=== PATIENT | male | born 1990 | race Asian ===

== ENCOUNTER 2017-04-27 16:39 | Emergency (ER) | payer OTHER ==
[~2017-04-27] VITALS: Ht 157.5 cm; Wt 59.0 kg
[~2017-04-27 16:39] MED LIST: CLON.1 PO; SERT50TA12 PO
[2017-04-27] MEDS ORDERED: NAPR250T2 PO (16:44)
[2017-04-27] MEDS ORDERED: COLCHICINE 0.6 MG TABLET PO ONE (18:45)
[2017-04-27] MEDS ORDERED: TraMADol HCL 50 MG TABLET PO ONE (20:15)
[2017-04-27 20:48] VITALS: BP 134/81
== END 2017-04-27 20:50 | disposition home or self-care (01) ==
LOC: EMS 16:42
DX: M10.9 Gout, unspecified (principal); M25.562 Pain in left knee; I10 Essential (primary) hypertension; M19.90 Unspecified osteoarthritis, unspecified site; F17.210 Nicotine dependence, cigarettes, uncomplicated; F12.90 Cannabis use, unspecified, uncomplicated; F19.90 Other psychoactive substance use, unspecified, uncomplicated; Z91.018 Allergy to other foods
CPT/HCPCS: 99283

== ENCOUNTER 2017-05-16 22:12 | Emergency (ER) | payer OTHER ==
[~2017-05-16] VITALS: Ht 157.5 cm; Wt 59.0 kg
[~2017-05-16 22:12] MED LIST changes: -CLON.1 PO; +NAPR250T2 PO; -SERT50TA12 PO
[2017-05-16 23:44] VITALS: BP 135/91
[2017-05-17] MEDS ORDERED: NAPROXEN 250 MG TABLET PO ONE
[2017-05-18] MEDS ORDERED: HYDR-309 PO (17:35)
== END 2017-05-17 00:21 | disposition home or self-care (01) ==
LOC: EMS 22:13
DX: S39.012A Strain of muscle, fascia and tendon of lower back, initial encounter (principal); M19.90 Unspecified osteoarthritis, unspecified site; I10 Essential (primary) hypertension; F17.210 Nicotine dependence, cigarettes, uncomplicated; F12.10 Cannabis abuse, uncomplicated; F15.10 Other stimulant abuse, uncomplicated; X50.0XXA Overexertion from strenuous movement or load, initial encounter; Y93.89 Activity, other specified; Y92.89 Other specified places as the place of occurrence of the external cause; Y99.8 Other external cause status
CPT/HCPCS: 99282

== ENCOUNTER 2017-11-19 13:37 | Emergency (ER) | payer OTHER ==
[~2017-11-19] VITALS: Ht 157.5 cm; Wt 58.0 kg
[~2017-11-19 13:37] MED LIST changes: +HYDR-309 PO; -NAPR250T2 PO; +NAPR250T4 PO
[2017-11-19] MEDS ORDERED: IBUPROFEN 800 MG TABLET PO ONE (15:45)
[2017-11-19 17:45] VITALS: BP 131/95
== END 2017-11-19 18:28 | disposition home or self-care (01) ==
LOC: EMS 13:39
DX: S60.221A Contusion of right hand, initial encounter (principal); M25.531 Pain in right wrist; F17.210 Nicotine dependence, cigarettes, uncomplicated; W22.8XXA Striking against or struck by other objects, initial encounter; Y93.89 Activity, other specified; Y92.89 Other specified places as the place of occurrence of the external cause; Y99.8 Other external cause status
CPT/HCPCS: 99284

== ENCOUNTER 2020-02-08 20:28 | Emergency (ER) | payer OTHER ==
[~2020-02-08] VITALS: Ht 157.5 cm; Wt 61.4 kg
[2020-02-08] MEDS ORDERED: ACETAMINOPHEN 500 MG TABLET PO ONE (20:45)
[2020-02-08 22:05] VITALS: BP 138/78
== END 2020-02-08 22:36 | disposition home or self-care (01) ==
LOC: EMS 20:33
DX: J02.8 Acute pharyngitis due to other specified organisms (principal); F17.210 Nicotine dependence, cigarettes, uncomplicated; Z91.018 Allergy to other foods; Z03.818 Encounter for observation for suspected exposure to other biological agents ruled out
CPT/HCPCS: 99283; U0003

== ENCOUNTER 2020-02-25 21:10 | Emergency (ER) | payer OTHER ==
[~2020-02-25] VITALS: Ht 157.5 cm; Wt 57.3 kg
[2020-02-25 23:10] VITALS: BP 117/97
[2020-02-25] MEDS: ALTEPLASE 2 MG/VIAL IVCATH ONE ×2 (23:13→23:16)
== END 2020-02-25 23:39 | disposition home or self-care (01) ==
LOC: EMS 21:10
DX: T82.594A Other mechanical complication of infusion catheter, initial encounter (principal); I10 Essential (primary) hypertension; F17.210 Nicotine dependence, cigarettes, uncomplicated; Z91.018 Allergy to other foods
CPT/HCPCS: J2997

== ENCOUNTER 2020-11-29 14:14 | Emergency (ER) | payer OTHER ==
[~2020-11-29] VITALS: Ht 157.5 cm; Wt 65.9 kg
[2020-11-29] MEDS ORDERED: ALLO100T2 PO (14:28)
[2020-11-29] MEDS ORDERED: COLC0.6T73 PO (14:28)
[2020-11-29] MEDS ORDERED: PRED1 PO (14:28)
[2020-11-29] MEDS ORDERED: PB/HYOSCY/ATR/SCOP/LIDO/MAALOX 55 ML BOTTLE PO ONE (15:30)
[2020-11-29] MEDS ORDERED: PENICILLIN V POTASSIUM 500 MG TABLET PO ONE (15:30)
[2020-11-29] MEDS ORDERED: DEXAMETHASONE SOD PHOS 4 MG/ML 5 ML VIAL IM ONE (15:30)
[2020-11-29] MEDS ORDERED: ACETAMINOPHEN 325 MG TABLET PO ONE (15:45)
[2020-11-29] MEDS ORDERED: HYDROCODONE/ACETAMINOPHEN 5-325 MG TABLET PO ONE (15:45)
[2020-11-29] MEDS ORDERED: AZITHROMYCIN 500 MG TABLET PO ONE (15:45)
[2020-11-29] MEDS ORDERED: IBUPROFEN 800 MG TABLET PO ONE (16:15)
[2020-11-29 18:04] VITALS: BP 137/108
== END 2020-11-29 18:10 | disposition home or self-care (01) ==
LOC: EMS 14:14
DX: J02.0 Streptococcal pharyngitis (principal); R51.9 Headache, unspecified; I10 Essential (primary) hypertension; F17.210 Nicotine dependence, cigarettes, uncomplicated; Z91.010 Allergy to peanuts; Z91.013 Allergy to seafood
CPT/HCPCS: 96372; 99284; A9575; J1100

== ENCOUNTER 2021-01-23 04:38 | Emergency (ER) | payer OTHER ==
[~2021-01-23] VITALS: Ht 157.5 cm; Wt 67.3 kg
[~2021-01-23 04:38] MED LIST changes: +ALLO100T2 PO; +COLC0.6T73 PO; -HYDR-309 PO; -NAPR250T4 PO; +PRED1 PO
[2021-01-23 05:45] VITALS: BP 158/116
[2021-01-23] MEDS ORDERED: KETOROLAC TROMETHAMINE 30 MG/ML VIAL IM ONE (06:30)
[2021-01-23] MEDS ORDERED: DOXYCYCLINE HYCLATE 100 MG TABLET PO ONE (06:30)
[2021-01-23] MEDS ORDERED: CEPHALEXIN MONOHYDRATE 500 MG CAPSULE PO ONE (06:30)
== END 2021-01-23 06:57 | disposition home or self-care (01) ==
LOC: EMS 04:39
DX: M10.9 Gout, unspecified (principal)
CPT/HCPCS: 96372; 99283; J1885

== ENCOUNTER 2021-01-24 18:58 | Emergency (ER) | payer OTHER ==
[~2021-01-24] VITALS: Ht 157.5 cm; Wt 67.3 kg
[2021-01-24 20:11] LABS: HEMATOCRIT 45.4 % (41-53); HEMOGLOBIN 15.1 g/dL (13.5-17.5); LYMPHOCYTES # (AUTO) 2.7 K/uL (1.0-4.8); LYMPHOCYTES % (AUTO) 30.9 % (22.0-44.0); MEAN CORPUSCULAR HEMOGLOBIN 29.2 pg (26.0-34.0); MEAN CORPUSCULAR HGB CONC 33.3 G/dL (31.0-37.0); MEAN CORPUSCULAR VOLUME 88 fL (80-100); MONOCYTES # (AUTO) 0.7 K/uL (0.1-1.0); MONOCYTES % (AUTO) 8.2 % (2.0-9.0); NEUTROPHILS % (AUTO) 56.9 % (40.0-70.0); PLATELET COUNT (AUTO) 163 K/uL (150-450); RED BLOOD CELL COUNT(AUTO) 5.17 MIL/uL (4.50-5.90); RED CELL DISTRIBUTION WIDTH 14.2 % (11.5-14.5)
[2021-01-24 20:23] LABS: CALCIUM, TOTAL 8.5 mg/dL (8.8-10.5); CREATININE 1.79 mg/dL (0.60-1.30)
[2021-01-24 20:29] LABS: BILIRUBIN,TOTAL 0.2 mg/dL (0.1-1.0); TOTAL PROTEIN, SERUM 6.6 g/dL (6.4-8.2)
[2021-01-24] MEDS ORDERED: AmLODIPine BESYLATE 5 MG TABLET PO ONE (20:30)
[2021-01-24] MEDS ORDERED: PredniSONE 20 MG TABLET PO ONE (21:00)
[2021-01-24 21:17] VITALS: BP 157/100
== END 2021-01-24 21:51 | disposition home or self-care (01) ==
LOC: EMS 19:01
DX: M10.9 Gout, unspecified (principal); F17.210 Nicotine dependence, cigarettes, uncomplicated; I10 Essential (primary) hypertension; Z91.010 Allergy to peanuts; Z91.013 Allergy to seafood; Z79.899 Other long term (current) drug therapy
CPT/HCPCS: 36415; 73130; 80053; 85025; 99284; J7512

== ENCOUNTER 2021-02-10 16:32 | Emergency (ER) | payer OTHER ==
[~2021-02-10] VITALS: Ht 157.5 cm; Wt 67.3 kg
[2021-02-10] MEDS ORDERED: AMLO2.5T96 PO (16:39)
[2021-02-10] MEDS ORDERED: KETOROLAC TROMETHAMINE 10 MG TABLET PO ONE (17:30)
[2021-02-10] MEDS ORDERED: AMLO-257 PO (17:38)
[2021-02-10] MEDS ORDERED: ALLO-45 PO (17:38)
[2021-02-10 17:55] VITALS: BP 142/100
== END 2021-02-10 18:00 | disposition home or self-care (01) ==
LOC: EMS 16:32
DX: S83.92XA Sprain of unspecified site of left knee, initial encounter (principal); I10 Essential (primary) hypertension; Z79.899 Other long term (current) drug therapy; W19.XXXA Unspecified fall, initial encounter; Y93.9 Activity, unspecified; Y92.89 Other specified places as the place of occurrence of the external cause; Y99.8 Other external cause status
CPT/HCPCS: 29505; 99283

== ENCOUNTER 2021-03-02 23:29 | Emergency (ER) | payer OTHER ==
[~2021-03-02] VITALS: Ht 157.5 cm; Wt 63.6 kg
[~2021-03-02 23:29] MED LIST changes: +ALLO-45 PO; -ALLO100T2 PO; +AMLO-257 PO
[2021-03-02] MEDS ORDERED: LOSA25TA21 PO (23:48)
[2021-03-03] MEDS ORDERED: ACETAMINOPHEN 325 MG TABLET PO ONE (01:30)
[2021-03-03] MEDS ORDERED: COLCHICINE 0.6 MG TABLET PO ONE ×2 (01:30)
[2021-03-03] MEDS ORDERED: PredniSONE 20 MG TABLET PO ONE (01:45)
[2021-03-03] MEDS ORDERED: LIDOCAINE 1% 10 ML VIAL IM ONE (03:00)
[2021-03-03 04:13] LABS: SPECIMENTYPE,BODY FLUID SYNOVIAL
[2021-03-03 06:00] LABS: APPEARANCE,SPUN,BODY FLUID HAZY (CLEAR); APPEARANCE,UNSPUN,BODY FLUID CLOUDY (CLEAR); COLOR,BODY FLUID YELLOW (LT YELLOW); WBC, BODY FLUID 58950 /cu. mm.
[2021-03-03 06:04] LABS: LYMPHOCYTES,BODY FLUID 0 %; MONOCYTES,BODY FLUID 10 %; NEUTROPHILS,BODY FLUID 90 %
[2021-03-03 06:06] LABS: EOSINOPHILS,BF (ANAL) 0 %
[2021-03-03 06:11] LABS: BASOPHILS,BODY FLUID 0 %
[2021-03-03 06:18] LABS: BASOPHILS % (AUTO) 0.4 % (0.0-2.0); EOSINOPHILS % (AUTO) 0.1 % (1.0-6.0); HEMATOCRIT 47.3 % (41-53); HEMOGLOBIN 15.6 g/dL (13.5-17.5); LYMPHOCYTES # (AUTO) 1.2 K/uL (1.0-4.8); LYMPHOCYTES % (AUTO) 10.5 % (22.0-44.0); MEAN CORPUSCULAR HEMOGLOBIN 28.5 pg (26.0-34.0); MEAN CORPUSCULAR HGB CONC 33.1 G/dL (31.0-37.0); MEAN CORPUSCULAR VOLUME 86 fL (80-100); MONOCYTES # (AUTO) 0.3 K/uL (0.1-1.0); MONOCYTES % (AUTO) 2.5 % (2.0-9.0); PLATELET COUNT (AUTO) 268 K/uL (150-450); RED BLOOD CELL COUNT(AUTO) 5.49 MIL/uL (4.50-5.90); RED CELL DISTRIBUTION WIDTH 14.4 % (11.5-14.5)
[2021-03-03 06:23] LABS: CREATININE 1.69 mg/dL (0.60-1.30); POTASSIUM 3.4 mmol/L (3.5-5.1)
[2021-03-03 06:36] LABS: ALBUMIN 2.9 g/dL (3.4-5.0); BILIRUBIN,TOTAL 0.6 mg/dL (0.1-1.0); C-REACTIVE PROTEIN QUANT 8.85 mg/dL (0.00-0.30); TOTAL PROTEIN, SERUM 7.3 g/dL (6.4-8.2)
[2021-03-03 06:56] LABS: NEUTROPHILS % (AUTO) 86.5 % (40.0-70.0)
[2021-03-03 08:01] LABS: ERYTHROCYTE SEDIMENTATION RATE 44 MM/HR (0-15)
[2021-03-03 09:51] VITALS: BP 128/77
== END 2021-03-03 09:59 | disposition home or self-care (01) ==
LOC: EMS 23:30
DX: M25.462 Effusion, left knee (principal); I10 Essential (primary) hypertension; F17.210 Nicotine dependence, cigarettes, uncomplicated; Z91.018 Allergy to other foods; Z91.010 Allergy to peanuts; Z91.013 Allergy to seafood; Z79.899 Other long term (current) drug therapy
CPT/HCPCS: 20610; 36415; 80053; 83605; 83986; 85025; 85651; 86140; 87040; 87070; 87205; 89051; 89060; 99285; J3490; J7512; 99284

== ENCOUNTER 2021-03-29 18:56 | Emergency (ER) | payer OTHER ==
[~2021-03-29] VITALS: Ht 170.2 cm; Wt 68.2 kg
[~2021-03-29 18:56] MED LIST changes: +LOSA25TA21 PO
[2021-03-29 19:59] LABS: COVID AG,FIA SOURCE NASOPHARYNGEAL
[2021-03-29 20:00] VITALS: BP 124/77
== END 2021-03-29 20:48 | disposition home or self-care (01) ==
LOC: EMS 18:58
DX: J02.9 Acute pharyngitis, unspecified (principal); R05 Cough; R51.9 Headache, unspecified; I10 Essential (primary) hypertension; F17.210 Nicotine dependence, cigarettes, uncomplicated; Z20.822 Contact with and (suspected) exposure to COVID-19; Z91.018 Allergy to other foods; Z91.010 Allergy to peanuts; Z91.013 Allergy to seafood
CPT/HCPCS: 87426; 99283; U0003

== ENCOUNTER 2021-07-11 13:39 | Emergency (ER) | payer OTHER ==
[~2021-07-11] VITALS: Ht 157.5 cm; Wt 65.5 kg
[2021-07-11] MEDS ORDERED: SODIUM CHLORIDE 0.9% 1,000 ML IV ONE (14:30)
[2021-07-11] MEDS ORDERED: CefTRIAXone 1 GM/DEXTROSE 50 ML IV ONE (14:30)
[2021-07-11] MEDS ORDERED: KETOROLAC TROMETHAMINE 30 MG/ML VIAL IVP ONE (14:30)
[2021-07-11] MEDS ORDERED: ONDANSETRON HCL 4 MG/2 ML VIAL IVP ONE (14:30)
[2021-07-11 14:39] LABS: CALCIUM, TOTAL 8.7 mg/dL (8.8-10.5); CREATININE 1.88 mg/dL (0.60-1.30); POTASSIUM 3.6 mmol/L (3.5-5.1)
[2021-07-11 14:44] LABS: BASOPHILS % (AUTO) 0.6 % (0.0-2.0); EOSINOPHILS % (AUTO) 0.9 % (1.0-6.0); HEMATOCRIT 46.6 % (41-53); HEMOGLOBIN 15.6 g/dL (13.5-17.5); LYMPHOCYTES # (AUTO) 1.4 K/uL (1.0-4.8); MEAN CORPUSCULAR HEMOGLOBIN 29.2 pg (26.0-34.0); MEAN CORPUSCULAR HGB CONC 33.4 G/dL (31.0-37.0); MEAN CORPUSCULAR VOLUME 88 fL (80-100); MONOCYTES # (AUTO) 0.9 K/uL (0.1-1.0); MONOCYTES % (AUTO) 7.2 % (2.0-9.0); NEUTROPHILS # (AUTO) 9.4 K/uL (1.8-7.7); NEUTROPHILS % (AUTO) 79.3 % (40.0-70.0); PLATELET COUNT (AUTO) 167 K/uL (150-450); RED BLOOD CELL COUNT(AUTO) 5.32 MIL/uL (4.50-5.90); RED CELL DISTRIBUTION WIDTH 14.1 % (11.5-14.5)
[2021-07-11 14:45] LABS: ALBUMIN 3.1 g/dL (3.4-5.0); BILIRUBIN,TOTAL 0.6 mg/dL (0.1-1.0); TOTAL PROTEIN, SERUM 7.1 g/dL (6.4-8.2)
[2021-07-11 16:14] LABS: APPEARANCE,URINE CLEAR (CLEAR); BILIRUBIN,URINE NEGATIVE (NEGATIVE); GLUCOSE, URINE (UA) NEGATIVE (NEGATIVE); KETONES,URINE NEGATIVE (NEGATIVE); LEUKOCYTE ESTERASE ,URINE NEGATIVE (NEGATIVE); NITRATE,URINE NEGATIVE (NEGATIVE); OCCULT BLOOD,URINE TRACE (NEGATIVE); PROTEIN,URINE SEE CONFIRM (NEGATIVE); UROBILINOGEN,URINE 0.2 mg/dL (<=1.0)
[2021-07-11 16:32] LABS: SULFOSALICYLIC ACID,URINE 4+ (Negative)
[2021-07-11 16:33] LABS: BACTERIA,URINE None Seen /HPF (None Seen); RBC,URINE None Seen /HPF (0-2); WBC,URINE None Seen /HPF (0-5)
[2021-07-11 17:44] VITALS: BP 153/104
== END 2021-07-11 17:55 | disposition home or self-care (01) ==
LOC: EMS 14:11
DX: R10.12 Left upper quadrant pain (principal); R50.9 Fever, unspecified; R94.4 Abnormal results of kidney function studies; I10 Essential (primary) hypertension; F17.210 Nicotine dependence, cigarettes, uncomplicated; Z91.018 Allergy to other foods; Z91.010 Allergy to peanuts; Z91.013 Allergy to seafood
CPT/HCPCS: 36415; 71045; 74176; 80053; 81001; 83605; 85025; 87040; 96365; 96366; 96375; 99284; J0696; J1885; J2405; J7030; 81002

== ENCOUNTER 2021-08-14 09:32 | Emergency (ER) | payer OTHER ==
[~2021-08-14] VITALS: Ht 157.5 cm; Wt 63.6 kg
[2021-08-14 09:47] VITALS: BP 153/105
[2021-08-14] MEDS ORDERED: COLCHICINE 0.6 MG TABLET PO ONE (11:00)
== END 2021-08-14 11:18 | disposition home or self-care (01) ==
LOC: EMS 09:32
DX: L30.9 Dermatitis, unspecified (principal); I12.9 Hypertensive chronic kidney disease with stage 1 through stage 4 chronic kidney disease, or unspecified chronic kidney disease; N18.9 Chronic kidney disease, unspecified; M19.90 Unspecified osteoarthritis, unspecified site; F17.210 Nicotine dependence, cigarettes, uncomplicated
CPT/HCPCS: 99283

== ENCOUNTER 2021-09-29 11:03 | Emergency (ER) | payer OTHER ==
[~2021-09-29] VITALS: Ht 165.1 cm; Wt 59.1 kg
[~2021-09-29 11:03] MED LIST changes: +LOSA-370 PO; -LOSA25TA21 PO; -PRED1 PO
[2021-09-29 13:43] LABS: BASOPHILS % (AUTO) 1.2 % (0.0-2.0); EOSINOPHILS % (AUTO) 1.1 % (1.0-6.0); HEMATOCRIT 44.2 % (41-53); HEMOGLOBIN 14.8 g/dL (13.5-17.5); LYMPHOCYTES # (AUTO) 1.9 K/uL (1.0-4.8); LYMPHOCYTES % (AUTO) 19.3 % (22.0-44.0); MEAN CORPUSCULAR HEMOGLOBIN 28.9 pg (26.0-34.0); MEAN CORPUSCULAR HGB CONC 33.6 G/dL (31.0-37.0); MEAN CORPUSCULAR VOLUME 86 fL (80-100); MONOCYTES # (AUTO) 0.7 K/uL (0.1-1.0); MONOCYTES % (AUTO) 7.1 % (2.0-9.0); NEUTROPHILS # (AUTO) 6.9 K/uL (1.8-7.7); NEUTROPHILS % (AUTO) 71.3 % (40.0-70.0); PLATELET COUNT (AUTO) 223 K/uL (150-450); RED BLOOD CELL COUNT(AUTO) 5.13 MIL/uL (4.50-5.90); RED CELL DISTRIBUTION WIDTH 14.1 % (11.5-14.5)
[2021-09-29 13:54] LABS: CALCIUM, TOTAL 8.7 mg/dL (8.8-10.5); CREATININE 1.9 mg/dL (0.60-1.30); POTASSIUM 3.8 mmol/L (3.5-5.1)
[2021-09-29 13:58] LABS: BILIRUBIN,TOTAL 0.4 mg/dL (0.1-1.0); TOTAL PROTEIN, SERUM 7.3 g/dL (6.4-8.2)
[2021-09-29 14:48] LABS: APPEARANCE,URINE CLEAR (CLEAR); BILIRUBIN,URINE NEGATIVE (NEGATIVE); GLUCOSE, URINE (UA) NEGATIVE (NEGATIVE); KETONES,URINE NEGATIVE (NEGATIVE); LEUKOCYTE ESTERASE ,URINE NEGATIVE (NEGATIVE); NITRATE,URINE NEGATIVE (NEGATIVE); OCCULT BLOOD,URINE TRACE (NEGATIVE); PROTEIN,URINE SEE CONFIRM (NEGATIVE); UROBILINOGEN,URINE 0.2 mg/dL (<=1.0)
[2021-09-29 14:53] LABS: BACTERIA,URINE None Seen /HPF (None Seen); RBC,URINE 0-2 /HPF (0-2); SULFOSALICYLIC ACID,URINE Trace (Negative); WBC,URINE None Seen /HPF (0-5)
[2021-09-29 15:14] VITALS: BP 149/90
[2021-09-29] MEDS ORDERED: DEXAMETHASONE 4 MG TABLET PO ONE (15:15)
== END 2021-09-29 16:42 | disposition home or self-care (01) ==
LOC: EMS 11:06
DX: R10.9 Unspecified abdominal pain (principal); I10 Essential (primary) hypertension; Z91.018 Allergy to other foods; Z91.010 Allergy to peanuts; Z91.013 Allergy to seafood; Z79.899 Other long term (current) drug therapy
CPT/HCPCS: 36415; 74176; 80053; 81001; 85025; 99284; J8540; 81002

== ENCOUNTER 2021-10-05 18:42 | Emergency (ER) | payer OTHER ==
[~2021-10-05] VITALS: Ht 162.6 cm; Wt 61.0 kg
[2021-10-05] MEDS ORDERED: PRED20 PO (21:53)
[2021-10-05] MEDS ORDERED: ACET-3385 PO (21:56)
[2021-10-05 22:00] VITALS: BP 142/87
== END 2021-10-05 22:02 | disposition home or self-care (01) ==
LOC: EMS 18:45
DX: M25.561 Pain in right knee (principal); M25.461 Effusion, right knee; I10 Essential (primary) hypertension; Z91.018 Allergy to other foods; Z91.013 Allergy to seafood; Z79.899 Other long term (current) drug therapy
CPT/HCPCS: 99283

== ENCOUNTER 2021-11-17 20:16 | Emergency (ER) | payer OTHER ==
[~2021-11-17] VITALS: Ht 162.6 cm; Wt 65.9 kg
[~2021-11-17 20:16] MED LIST changes: +ACET-3385 PO; -LOSA-370 PO; +LOSA-381 PO; +PRED-554 PO
[2021-11-17] MEDS ORDERED: MethylPREDNISolone SOD SUCC 125 MG/2 ML VIAL IVP ONE (20:45)
[2021-11-17] MEDS ORDERED: FAMOTIDINE 10 MG/ML 2 ML VIAL IVP ONE (20:45)
[2021-11-17] MEDS ORDERED: DiphenhydrAMINE HCL 50 MG/ML VIAL IVP ONE (20:45)
[2021-11-17] MEDS ORDERED: DIPH25CA85 PO (22:10)
[2021-11-17] MEDS ORDERED: PRED-554 PO (22:10)
[2021-11-17 22:29] VITALS: BP 150/99
== END 2021-11-17 22:52 | disposition home or self-care (01) ==
LOC: EMS 20:19
DX: L50.9 Urticaria, unspecified (principal); I10 Essential (primary) hypertension; Z91.018 Allergy to other foods; Z91.010 Allergy to peanuts; Z91.013 Allergy to seafood; Z79.899 Other long term (current) drug therapy
CPT/HCPCS: 96374; 96375; 99284; J1200; J2930; J3490

== ENCOUNTER 2022-01-25 16:59 | Emergency (ER) | payer OTHER ==
[~2022-01-25] VITALS: Ht 162.6 cm; Wt 64.0 kg
[~2022-01-25 16:59] MED LIST changes: +DIPH25CA85 PO
[2022-01-25 17:48] LABS: BASOPHILS % (AUTO) 0.8 % (0.0-2.0); EOSINOPHILS % (AUTO) 3.7 % (1.0-6.0); HEMATOCRIT 42.5 % (41-53); HEMOGLOBIN 14.6 g/dL (13.5-17.5); LYMPHOCYTES # (AUTO) 2.1 K/uL (1.0-4.8); LYMPHOCYTES % (AUTO) 30.2 % (22.0-44.0); MEAN CORPUSCULAR HGB CONC 34.3 G/dL (31.0-37.0); MEAN CORPUSCULAR VOLUME 85 fL (80-100); MONOCYTES # (AUTO) 0.7 K/uL (0.1-1.0); MONOCYTES % (AUTO) 10.4 % (2.0-9.0); NEUTROPHILS # (AUTO) 3.8 K/uL (1.8-7.7); NEUTROPHILS % (AUTO) 54.9 % (40.0-70.0); PLATELET COUNT (AUTO) 193 K/uL (150-450); RED BLOOD CELL COUNT(AUTO) 5.03 MIL/uL (4.50-5.90); RED CELL DISTRIBUTION WIDTH 13.7 % (11.5-14.5)
[2022-01-25 17:58] LABS: CALCIUM, TOTAL 8.3 mg/dL (8.8-10.5); CREATININE 1.97 mg/dL (0.60-1.30); POTASSIUM 3.8 mmol/L (3.5-5.1)
[2022-01-25 18:06] LABS: ALBUMIN 3.1 g/dL (3.4-5.0); BILIRUBIN,TOTAL 0.2 mg/dL (0.1-1.0); TOTAL PROTEIN, SERUM 6.9 g/dL (6.4-8.2)
[2022-01-25] MEDS ORDERED: FAMOTIDINE 20 MG TABLET PO ONE (20:00)
[2022-01-25] MEDS ORDERED: ACETAMINOPHEN 500 MG TABLET PO ONE (20:00)
[2022-01-25] MEDS ORDERED: ONDANSETRON HCL 4 MG TABLET PO ONE (20:00)
[2022-01-25] MEDS ORDERED: MAG HYDROX/AL HYDROX/SIMETH 30 ML SUSP UDCUP PO ONE (20:00)
[2022-01-25 20:32] LABS: APPEARANCE,URINE CLEAR (CLEAR); BILIRUBIN,URINE NEGATIVE (NEGATIVE); GLUCOSE, URINE (UA) NEGATIVE (NEGATIVE); KETONES,URINE NEGATIVE (NEGATIVE); LEUKOCYTE ESTERASE ,URINE NEGATIVE (NEGATIVE); NITRATE,URINE NEGATIVE (NEGATIVE); OCCULT BLOOD,URINE NEGATIVE (NEGATIVE); PH,URINE 6.5 (5.0-8.0); PROTEIN,URINE 30-70 mg/dL (NEGATIVE); SPECIFIC GRAVITIY, URINE 1.005 (1.003-1.030); UROBILINOGEN,URINE <=1.0 mg/dL (<=1.0)
[2022-01-25 21:33] VITALS: BP 167/113
[2022-01-25] MEDS ORDERED: AMOX1TAB16 PO (21:39)
[2022-01-25] MEDS ORDERED: AMOX TR/POT CLAV 875 MG/125 MG TABLET PO ONE (21:45)
== END 2022-01-25 22:17 | disposition home or self-care (01) ==
LOC: EMS 16:59
DX: K57.92 Diverticulitis of intestine, part unspecified, without perforation or abscess without bleeding (principal); R10.9 Unspecified abdominal pain; M19.90 Unspecified osteoarthritis, unspecified site; M10.9 Gout, unspecified; I12.9 Hypertensive chronic kidney disease with stage 1 through stage 4 chronic kidney disease, or unspecified chronic kidney disease; N18.2 Chronic kidney disease, stage 2 (mild); F17.210 Nicotine dependence, cigarettes, uncomplicated; Z87.448 Personal history of other diseases of urinary system; Z98.890 Other specified postprocedural states; Z91.013 Allergy to seafood; Z91.010 Allergy to peanuts; Z91.018 Allergy to other foods
CPT/HCPCS: 36415; 74176; 80053; 81003; 83690; 85025; 99284; Q0162

== ENCOUNTER 2022-05-18 15:08 | Emergency (ER) | payer OTHER ==
[~2022-05-18] VITALS: Ht 167.6 cm; Wt 68.2 kg
[~2022-05-18 15:08] MED LIST changes: +AMOX1TAB16 PO; +EPIN0.3P3 IM
[2022-05-18 15:09] VITALS: BP 161/110
[2022-05-18] MEDS ORDERED: METO25 PO (15:20)
[2022-05-18] MEDS ORDERED: PRED-729 PO (15:20)
[2022-05-18] MEDS ORDERED: DIPH-1080 PO (15:20)
[2022-05-18] MEDS ORDERED: CLON0.1T2 PO (15:20)
[2022-05-18] MEDS ORDERED: LOSA100T58 PO (15:20)
[2022-05-18] MEDS ORDERED: AMLO10TA55 PO (15:20)
== END 2022-05-18 15:51 | disposition home or self-care (01) ==
LOC: EMS 15:08
DX: Z02.79 Encounter for issue of other medical certificate (principal); M19.90 Unspecified osteoarthritis, unspecified site; I12.9 Hypertensive chronic kidney disease with stage 1 through stage 4 chronic kidney disease, or unspecified chronic kidney disease; N18.2 Chronic kidney disease, stage 2 (mild); M10.9 Gout, unspecified; F17.210 Nicotine dependence, cigarettes, uncomplicated; Z98.890 Other specified postprocedural states; Z91.018 Allergy to other foods; Z88.6 Allergy status to analgesic agent; Z91.010 Allergy to peanuts; Z91.013 Allergy to seafood
CPT/HCPCS: 99281; Z7502

== ENCOUNTER 2022-05-21 17:27 | Emergency (ER) | payer OTHER ==
[~2022-05-21] VITALS: Ht 162.6 cm; Wt 61.4 kg
[~2022-05-21 17:27] MED LIST changes: -AMLO-257 PO; +AMLO10TA55 PO; -AMOX1TAB16 PO; +CLON0.1T2 PO; +DIPH-1080 PO; -DIPH25CA85 PO; -EPIN0.3P3 IM; -LOSA-381 PO; +LOSA100T58 PO; +METO25 PO; -PRED-554 PO; +PRED-729 PO
[2022-05-21 17:31] VITALS: BP 151/99
[2022-05-21] MEDS ORDERED: EPIN0.3P19 IM (17:36)
[2022-05-21 17:46] LABS: COVID AG,FIA SOURCE NASAL SWAB
[2022-05-21] MEDS ORDERED: D-ME118S47 PO (18:40)
[2022-05-21] MEDS ORDERED: ALBU8HFA IH (18:41)
== END 2022-05-21 18:49 | disposition home or self-care (01) ==
LOC: EMS 17:29
DX: J06.9 Acute upper respiratory infection, unspecified (principal); Z20.822 Contact with and (suspected) exposure to COVID-19; R06.2 Wheezing; F10.20 Alcohol dependence, uncomplicated; F17.210 Nicotine dependence, cigarettes, uncomplicated; I12.9 Hypertensive chronic kidney disease with stage 1 through stage 4 chronic kidney disease, or unspecified chronic kidney disease; N18.2 Chronic kidney disease, stage 2 (mild); M19.90 Unspecified osteoarthritis, unspecified site; Z88.6 Allergy status to analgesic agent
CPT/HCPCS: 99283

== ENCOUNTER 2022-05-27 10:09 | Emergency (ER) | payer OTHER ==
[~2022-05-27] VITALS: Ht 162.6 cm; Wt 61.4 kg
[~2022-05-27 10:09] MED LIST changes: +ALBU8HFA IH; +D-ME118S47 PO; +EPIN0.3P19 IM; +EPIN0.3P3 IM
[2022-05-27 10:17] VITALS: BP 148/87
[2022-05-27] MEDS ORDERED: AMOX1TAB16 PO (14:05)
== END 2022-05-27 14:29 | disposition home or self-care (01) ==
LOC: EMS 10:17
DX: K05.219 Aggressive periodontitis, localized, unspecified severity (principal); F10.20 Alcohol dependence, uncomplicated; F17.210 Nicotine dependence, cigarettes, uncomplicated; I12.9 Hypertensive chronic kidney disease with stage 1 through stage 4 chronic kidney disease, or unspecified chronic kidney disease; N18.2 Chronic kidney disease, stage 2 (mild); M19.90 Unspecified osteoarthritis, unspecified site
CPT/HCPCS: 99283; Z7502

== ENCOUNTER 2022-12-11 02:02 | Emergency (ER) | payer OTHER ==
[~2022-12-11] VITALS: Ht 162.6 cm; Wt 59.1 kg
[~2022-12-11 02:02] MED LIST changes: +ALBU18HF12 IH; -ALBU8HFA IH; +AMOX1TAB16 PO
[2022-12-11] MEDS ORDERED: MORPHINE SULFATE 2 MG/ML SYRINGE IVP ONE (03:00)
[2022-12-11] MEDS ORDERED: SODIUM CHLORIDE 0.9% 1,000 ML IV ONE (03:00)
[2022-12-11 03:54] LABS: BASOPHILS % (AUTO) 1.2 % (0.0-2.0); EOSINOPHILS % (AUTO) 6.6 % (1.0-6.0); HEMOGLOBIN 14.4 g/dL (13.5-17.5); LYMPHOCYTES # (AUTO) 3.1 K/uL (1.0-4.8); LYMPHOCYTES % (AUTO) 32.6 % (22.0-44.0); MEAN CORPUSCULAR HEMOGLOBIN 29.5 pg (26.0-34.0); MEAN CORPUSCULAR HGB CONC 34.4 G/dL (31.0-37.0); MEAN CORPUSCULAR VOLUME 86 fL (80-100); MONOCYTES # (AUTO) 0.9 K/uL (0.1-1.0); NEUTROPHILS # (AUTO) 4.7 K/uL (1.8-7.7); NEUTROPHILS % (AUTO) 49.6 % (40.0-70.0); PLATELET COUNT (AUTO) 174 K/uL (150-450); RED BLOOD CELL COUNT(AUTO) 4.89 MIL/uL (4.50-5.90); RED CELL DISTRIBUTION WIDTH 14.6 % (11.5-14.5)
[2022-12-11 03:55] LABS: APPEARANCE,URINE CLEAR (CLEAR); BILIRUBIN,URINE NEGATIVE (NEGATIVE); GLUCOSE, URINE (UA) NEGATIVE (NEGATIVE); KETONES,URINE NEGATIVE (NEGATIVE); LEUKOCYTE ESTERASE ,URINE NEGATIVE (NEGATIVE); NITRATE,URINE NEGATIVE (NEGATIVE); OCCULT BLOOD,URINE NEGATIVE (NEGATIVE); PH,URINE 5.5 (5.0-8.0); SPECIFIC GRAVITIY, URINE 1.003 (1.003-1.030); UROBILINOGEN,URINE <=1.0 mg/dL (<=1.0)
[2022-12-11 03:56] LABS: CALCIUM, TOTAL 8.9 mg/dL (8.8-10.5); CREATININE 1.93 mg/dL (0.60-1.30)
[2022-12-11 04:02] LABS: ALBUMIN 3.4 g/dL (3.4-5.0); BILIRUBIN,TOTAL 0.3 mg/dL (0.1-1.0); TOTAL PROTEIN, SERUM 7.4 g/dL (6.4-8.2)
[2022-12-11 04:08] LABS: PROTEIN,URINE NEGATIVE (NEGATIVE)
[2022-12-11 05:27] VITALS: BP 151/101
== END 2022-12-11 05:58 | disposition home or self-care (01) ==
LOC: EMS 02:04
DX: R10.9 Unspecified abdominal pain (principal); M19.90 Unspecified osteoarthritis, unspecified site; I10 Essential (primary) hypertension; F17.210 Nicotine dependence, cigarettes, uncomplicated; Z98.890 Other specified postprocedural states; Z88.6 Allergy status to analgesic agent; Z91.010 Allergy to peanuts; Z91.018 Allergy to other foods; Z91.013 Allergy to seafood
CPT/HCPCS: 99285; 74176; 96374; 96361; 80053; 81003; 83690; 85025; 36415; J2270; J7030

== ENCOUNTER 2023-01-30 18:25 | Emergency (ER) | payer OTHER ==
[~2023-01-30] VITALS: Ht 157.5 cm; Wt 62.7 kg
[~2023-01-30 18:25] MED LIST changes: -AMOX1TAB16 PO; -LOSA100T58 PO; +LOSA100T59 PO
[2023-01-30] MEDS ORDERED: COLCHICINE 0.6 MG TABLET PO ONE ×2 (18:45→20:15)
[2023-01-30 19:36] LABS: BASOPHILS % (AUTO) 0.5 % (0.0-2.0); HEMATOCRIT 44.6 % (41-53); HEMOGLOBIN 14.9 g/dL (13.5-17.5); LYMPHOCYTES # (AUTO) 1.7 K/uL (1.0-4.8); LYMPHOCYTES % (AUTO) 15.6 % (22.0-44.0); MEAN CORPUSCULAR HEMOGLOBIN 28.4 pg (26.0-34.0); MEAN CORPUSCULAR HGB CONC 33.3 G/dL (31.0-37.0); MEAN CORPUSCULAR VOLUME 85 fL (80-100); MONOCYTES # (AUTO) 1.1 K/uL (0.1-1.0); MONOCYTES % (AUTO) 10.3 % (2.0-9.0); NEUTROPHILS # (AUTO) 7.8 K/uL (1.8-7.7); NEUTROPHILS % (AUTO) 72.6 % (40.0-70.0); PLATELET COUNT (AUTO) 183 K/uL (150-450); RED BLOOD CELL COUNT(AUTO) 5.23 MIL/uL (4.50-5.90); RED CELL DISTRIBUTION WIDTH 15.1 % (11.5-14.5)
[2023-01-30 19:44] LABS: CALCIUM, TOTAL 8.9 mg/dL (8.8-10.5); CREATININE 1.86 mg/dL (0.60-1.30); POTASSIUM 3.7 mmol/L (3.5-5.1)
[2023-01-30] MEDS ORDERED: ACETAMINOPHEN 500 MG TABLET PO ONE (19:45)
[2023-01-30 19:50] LABS: ALBUMIN 3.1 g/dL (3.4-5.0); BILIRUBIN,TOTAL 0.3 mg/dL (0.1-1.0); TOTAL PROTEIN, SERUM 7.2 g/dL (6.4-8.2); URIC ACID 10.2 mg/dL (2.6-7.2)
[2023-01-30 19:52] LABS: APPEARANCE,URINE CLEAR (CLEAR); BILIRUBIN,URINE NEGATIVE (NEGATIVE); GLUCOSE, URINE (UA) TRACE mg/dL (NEGATIVE); KETONES,URINE NEGATIVE (NEGATIVE); LEUKOCYTE ESTERASE ,URINE NEGATIVE (NEGATIVE); NITRATE,URINE NEGATIVE (NEGATIVE); OCCULT BLOOD,URINE SMALL (NEGATIVE); PH,URINE 5.5 (5.0-8.0); PROTEIN,URINE 30-70 mg/dL (NEGATIVE); SPECIFIC GRAVITIY, URINE 1.008 (1.003-1.030); UROBILINOGEN,URINE <=1.0 mg/dL (<=1.0)
[2023-01-30 20:00] LABS: BACTERIA,URINE None Seen /HPF (None Seen); SQUAMOUS EPITHELIAL CELL,UR Rare /LPF (None Seen); WBC,URINE 0-2 /HPF (0-5)
[2023-01-30] MEDS ORDERED: COLC0.6T73 PO (20:23)
[2023-01-30] MEDS ORDERED: POLY238P PO (20:23)
[2023-01-30] MEDS ORDERED: HYDR-4072 PO (20:23)
[2023-01-30] MEDS ORDERED: PRED-554 PO (20:25)
[2023-01-30 21:10] VITALS: BP 147/100
== END 2023-01-30 21:13 | disposition home or self-care (01) ==
LOC: EMS 18:26
DX: M10.9 Gout, unspecified (principal); I12.9 Hypertensive chronic kidney disease with stage 1 through stage 4 chronic kidney disease, or unspecified chronic kidney disease; N18.2 Chronic kidney disease, stage 2 (mild); F17.210 Nicotine dependence, cigarettes, uncomplicated; Z98.890 Other specified postprocedural states; Z88.6 Allergy status to analgesic agent; Z91.010 Allergy to peanuts; Z91.013 Allergy to seafood; Z91.018 Allergy to other foods
CPT/HCPCS: 80053; 81001; 83690; 84550; 85025; 99283

== ENCOUNTER 2023-05-08 16:32 | Emergency (ER) | payer OTHER ==
[~2023-05-08] VITALS: Ht 162.6 cm; Wt 63.6 kg
[~2023-05-08 16:32] MED LIST changes: -D-ME118S47 PO; -EPIN0.3P19 IM; +HYDR-4072 PO; +POLY238P PO; +PRED-554 PO
[2023-05-08 16:33] VITALS: TEMP 98.3
[2023-05-08 17:30] LABS: APPEARANCE,URINE CLEAR (CLEAR); BILIRUBIN,URINE NEGATIVE (NEGATIVE); GLUCOSE, URINE (UA) NEGATIVE (NEGATIVE); KETONES,URINE NEGATIVE (NEGATIVE); LEUKOCYTE ESTERASE ,URINE NEGATIVE (NEGATIVE); NITRATE,URINE NEGATIVE (NEGATIVE); OCCULT BLOOD,URINE SMALL (NEGATIVE); PH,URINE 5.5 (5.0-8.0); PROTEIN,URINE 100-200,SEE CONFIRM mg/dL (NEGATIVE); SPECIFIC GRAVITIY, URINE 1.008 (1.003-1.030); UROBILINOGEN,URINE <=1.0 mg/dL (<=1.0)
[2023-05-08 17:40] LABS: BACTERIA,URINE None Seen /HPF (None Seen); SULFOSALICYLIC ACID,URINE 2+ (Negative); WBC,URINE None Seen /HPF (0-5)
[2023-05-08 17:50] LABS: BASOPHILS % (AUTO) 1.1 % (0.0-2.0); EOSINOPHILS % (AUTO) 6.9 % (1.0-6.0); HEMATOCRIT 46.2 % (41-53); HEMOGLOBIN 14.9 g/dL (13.5-17.5); LYMPHOCYTES # (AUTO) 2.5 K/uL (1.0-4.8); LYMPHOCYTES % (AUTO) 22.7 % (22.0-44.0); MEAN CORPUSCULAR HEMOGLOBIN 27.8 pg (26.0-34.0); MEAN CORPUSCULAR HGB CONC 32.3 G/dL (31.0-37.0); MEAN CORPUSCULAR VOLUME 86 fL (80-100); MONOCYTES # (AUTO) 0.9 K/uL (0.1-1.0); MONOCYTES % (AUTO) 7.9 % (2.0-9.0); NEUTROPHILS # (AUTO) 6.9 K/uL (1.8-7.7); NEUTROPHILS % (AUTO) 61.4 % (40.0-70.0); PLATELET COUNT (AUTO) 217 K/uL (150-450); RED BLOOD CELL COUNT(AUTO) 5.37 MIL/uL (4.50-5.90); RED CELL DISTRIBUTION WIDTH 14.4 % (11.5-14.5)
[2023-05-08 18:01] LABS: CALCIUM, TOTAL 8.7 mg/dL (8.8-10.5); CREATININE 1.87 mg/dL (0.60-1.30); POTASSIUM 3.8 mmol/L (3.5-5.1)
[2023-05-08 18:21] LABS: CREATINE KINASE, TOTAL ONLY 79 U/L (39-308); LIPASE 31 U/L (16-77)
[2023-05-08 18:22] LABS: ALBUMIN 3.2 g/dL (3.4-5.0); BILIRUBIN,TOTAL 0.3 mg/dL (0.1-1.0); TOTAL PROTEIN, SERUM 7.4 g/dL (6.4-8.2)
[2023-05-08] MEDS ORDERED: LIDOCAINE 5% TRANSDERMAL PATCH TD ONE (18:30)
[2023-05-08] MEDS ORDERED: TraMADol HCL 50 MG TABLET PO ONE (18:30)
[2023-05-08] MEDS ORDERED: LIDO1ADH63 TP (19:38)
[2023-05-08] MEDS ORDERED: CYCL-448 PO (19:38)
[2023-05-08 19:48] VITALS: BP 143/96; PULSE 72; RESP 16
== END 2023-05-08 19:50 | disposition home or self-care (01) ==
LOC: EMS 16:32
DX: M54.50 Low back pain, unspecified (principal); M19.90 Unspecified osteoarthritis, unspecified site; I12.9 Hypertensive chronic kidney disease with stage 1 through stage 4 chronic kidney disease, or unspecified chronic kidney disease; N18.9 Chronic kidney disease, unspecified; F17.210 Nicotine dependence, cigarettes, uncomplicated; Z98.890 Other specified postprocedural states; Z88.6 Allergy status to analgesic agent; Z91.018 Allergy to other foods; Z91.010 Allergy to peanuts; Z91.013 Allergy to seafood
CPT/HCPCS: 80053; 81001; 81002; 82550; 83690; 85025; 99283

== ENCOUNTER 2023-05-10 10:09 | Emergency (ER) | payer OTHER ==
[~2023-05-10] VITALS: Ht 162.6 cm; Wt 63.6 kg
[~2023-05-10 10:09] MED LIST changes: -ALBU18HF12 IH; +CYCL-448 PO; -DIPH-1080 PO; -HYDR-4072 PO; +LIDO1ADH63 TP; -POLY238P PO; -PRED-554 PO
[2023-05-10 10:14] VITALS: TEMP 98.6
[2023-05-10] MEDS ORDERED: MORPHINE SULFATE 2 MG/ML SYRINGE IVP ONE (11:15)
[2023-05-10] MEDS ORDERED: SODIUM CHLORIDE 0.9% 1,000 ML IV ONE (11:15)
[2023-05-10] MEDS ORDERED: ACETAMINOPHEN 500 MG TABLET PO ONE (11:15)
[2023-05-10 11:32] LABS: BASOPHILS % (AUTO) 0.5 % (0.0-2.0); EOSINOPHILS % (AUTO) 1.4 % (1.0-6.0); HEMATOCRIT 45.9 % (41-53); HEMOGLOBIN 15.4 g/dL (13.5-17.5); LYMPHOCYTES # (AUTO) 2.1 K/uL (1.0-4.8); MEAN CORPUSCULAR HEMOGLOBIN 28.4 pg (26.0-34.0); MEAN CORPUSCULAR HGB CONC 33.5 G/dL (31.0-37.0); MEAN CORPUSCULAR VOLUME 85 fL (80-100); MONOCYTES % (AUTO) 13.8 % (2.0-9.0); NEUTROPHILS # (AUTO) 9.8 K/uL (1.8-7.7); NEUTROPHILS % (AUTO) 69.3 % (40.0-70.0); PLATELET COUNT (AUTO) 205 K/uL (150-450); RED BLOOD CELL COUNT(AUTO) 5.42 MIL/uL (4.50-5.90); RED CELL DISTRIBUTION WIDTH 14.4 % (11.5-14.5); WHITE BLOOD COUNT (AUTO) 14.1 K/uL (4.5-11.0)
[2023-05-10 11:41] LABS: ANION GAP 13 mmol/L (8-16); CALCIUM, TOTAL 9.5 mg/dL (8.8-10.5); CARBON DIOXIDE 22 mmol/L (22-29); CHLORIDE 99 mmol/L (98-107); CREATININE 1.83 mg/dL (0.60-1.30); GLOMERULAR FILTR. RATE CALC 43 mL/min (>60); GLUCOSE,RANDOM 108 mg/dL (70-110); POTASSIUM 3.7 mmol/L (3.5-5.1); SODIUM SERUM 134 mmol/L (136-145); UREA NITROGEN, BLOOD 20 mg/dL (7-18)
[2023-05-10 11:42] LABS: ALCOHOL, BLOOD (SERUM) < 3 mg/dL (0-10)
[2023-05-10 11:46] LABS: ALANINE AMINOTRANSFERASE 11 U/L (12-78); ALKALINE PHOSPHATASE 152 U/L (46-116); ASPARTATE AMINOTRANSFERASE 15 U/L (15-37); BILIRUBIN,TOTAL 0.9 mg/dL (0.1-1.0); LIPASE 19 U/L (16-77); TOTAL PROTEIN, SERUM 7.9 g/dL (6.4-8.2)
[2023-05-10 11:50] LABS: TROPONIN I-HIGH SENSITIVITY 50 ng/L (<76)
[2023-05-10 12:31] LABS: COVID AG,FIA SOURCE NASOPHARYNGEAL
[2023-05-10 12:34] LABS: APPEARANCE,URINE CLEAR (CLEAR); BILIRUBIN,URINE NEGATIVE (NEGATIVE); COLOR,URINE YELLOW (YELLOW); GLUCOSE, URINE (UA) NEGATIVE (NEGATIVE); KETONES,URINE NEGATIVE (NEGATIVE); LEUKOCYTE ESTERASE ,URINE NEGATIVE (NEGATIVE); NITRATE,URINE NEGATIVE (NEGATIVE); OCCULT BLOOD,URINE SMALL (NEGATIVE); PROTEIN,URINE 300-600,SEE CONFIRM mg/dL (NEGATIVE); SPECIFIC GRAVITIY, URINE 1.019 (1.003-1.030); UROBILINOGEN,URINE <=1.0 mg/dL (<=1.0)
[2023-05-10 12:41] LABS: ALCOHOL, URINE DRUG SCREEN NEGATIVE (NEGATIVE); AMPHET/METH SCREEN,URINE NEGATIVE (NEGATIVE); BARBITURATE SCREEN, URINE NEGATIVE (NEGATIVE); BENZODIAZEPINES SCREEN,URINE NEGATIVE (NEGATIVE); CANNABINOID SCREEN,URINE NEGATIVE (NEGATIVE); COCAINE SCREEN,URINE NEGATIVE (NEGATIVE); METHADONE SCREEN, URINE NEGATIVE (NEGATIVE); OPIATE SCREEN,URINE POSITIVE (NEGATIVE); PHENCYCLIDINE SCREEN,URINE NEGATIVE (NEGATIVE)
[2023-05-10 12:46] LABS: BACTERIA,URINE None Seen /HPF (None Seen); SQUAMOUS EPITHELIAL CELL,UR Few /LPF (None Seen); SULFOSALICYLIC ACID,URINE 4+ (Negative); WBC,URINE 0-2 /HPF (0-5)
[2023-05-10 13:02] LABS: SARS-COV2 (COVID) ANTIGEN,FIA Negative (Negative)
[2023-05-10] MEDS ORDERED: LIDO700A15 TP (13:44)
[2023-05-10] MEDS ORDERED: ACET-3385 PO (13:44)
[2023-05-10 13:54] LABS: TROPONIN I-HIGH SENSITIVITY 34 ng/L (<76)
[2023-05-10 14:15] VITALS: BP 138/94; PULSE 94; RESP 18
== END 2023-05-10 14:17 | disposition home or self-care (01) ==
LOC: EMS 10:12
DX: M54.50 Low back pain, unspecified (principal); M19.90 Unspecified osteoarthritis, unspecified site; I12.9 Hypertensive chronic kidney disease with stage 1 through stage 4 chronic kidney disease, or unspecified chronic kidney disease; N18.2 Chronic kidney disease, stage 2 (mild); F17.210 Nicotine dependence, cigarettes, uncomplicated; Z98.890 Other specified postprocedural states; Z20.822 Contact with and (suspected) exposure to COVID-19
CPT/HCPCS: 99285; 74176; 96374; 71045; 96361; 87426; 80053; 83605; 83690; 84484; 85025; 36415; 93005; 80307; 81001; J2270; J7030; G0480; 81002

== ENCOUNTER 2023-05-12 05:10 | Emergency (ER) | payer OTHER ==
[~2023-05-12] VITALS: Ht 162.6 cm; Wt 63.6 kg
[~2023-05-12 05:10] MED LIST changes: +LIDO700A15 TP
[2023-05-12 05:11] VITALS: TEMP 99
[2023-05-12] MEDS ORDERED: HYDROCODONE/ACETAMINOPHEN 5-325 MG TABLET PO ONE (06:30)
[2023-05-12] MEDS ORDERED: MethylPREDNISolone SOD SUCC 125 MG/2 ML VIAL IM ONE (06:30)
[2023-05-12] MEDS ORDERED: TRAM-559 PO (06:50)
[2023-05-12 08:55] VITALS: BP 153/100; PULSE 98; RESP 16
== END 2023-05-12 08:56 | disposition home or self-care (01) ==
LOC: EMS 05:12
DX: M10.9 Gout, unspecified (principal); I12.9 Hypertensive chronic kidney disease with stage 1 through stage 4 chronic kidney disease, or unspecified chronic kidney disease; N18.2 Chronic kidney disease, stage 2 (mild); F17.210 Nicotine dependence, cigarettes, uncomplicated; Z98.890 Other specified postprocedural states; Z88.6 Allergy status to analgesic agent; Z91.018 Allergy to other foods; Z91.010 Allergy to peanuts; Z91.013 Allergy to seafood
CPT/HCPCS: 96372; 99283; J2930

== ENCOUNTER 2023-07-10 06:52 | Emergency (ER) | payer OTHER ==
[~2023-07-10] VITALS: Ht 162.6 cm; Wt 65.9 kg
[~2023-07-10 06:52] MED LIST changes: -ACET-3385 PO; +TRAM-559 PO
[2023-07-10 06:53] VITALS: TEMP 97.9
[2023-07-10] MEDS ORDERED: COLCHICINE 0.6 MG TABLET PO ONE ×2 (07:15→08:30)
[2023-07-10] MEDS ORDERED: HYDROCODONE/ACETAMINOPHEN 10-325 MG TABLET PO ONE (07:15)
[2023-07-10 09:30] VITALS: BP 145/90; PULSE 80; RESP 12
== END 2023-07-10 09:39 | disposition home or self-care (01) ==
LOC: EMS 06:53
DX: M10.9 Gout, unspecified (principal); I10 Essential (primary) hypertension; N18.2 Chronic kidney disease, stage 2 (mild); F17.210 Nicotine dependence, cigarettes, uncomplicated; Z87.440 Personal history of urinary (tract) infections; Z91.013 Allergy to seafood; Z91.010 Allergy to peanuts
CPT/HCPCS: 99284; Z7502; Z7610

== ENCOUNTER 2023-07-28 05:13 | Emergency (ER) | payer OTHER ==
[~2023-07-28] VITALS: Ht 162.6 cm; Wt 61.3 kg
[2023-07-28 05:16] VITALS: TEMP 98.2
[2023-07-28 05:43] VITALS: BP 132/102; PULSE 99; RESP 18
[2023-07-28] MEDS ORDERED: KETOROLAC TROMETHAMINE 60 MG/2 ML VIAL IM ONE (06:15)
[2023-07-28] MEDS ORDERED: COLCHICINE 0.6 MG TABLET PO ONE (06:15)
[2023-07-28] MEDS ORDERED: COLC0.6T73 PO (06:21)
[2023-07-28] MEDS ORDERED: ALLO-45 PO (06:21)
[2023-07-28] MEDS ORDERED: HYDR-4723 PO (06:21)
[2023-07-28] MEDS ORDERED: POLY238P PO (06:21)
== END 2023-07-28 06:56 | disposition home or self-care (01) ==
LOC: EMS 05:16
DX: M10.9 Gout, unspecified (principal); I12.9 Hypertensive chronic kidney disease with stage 1 through stage 4 chronic kidney disease, or unspecified chronic kidney disease; N18.9 Chronic kidney disease, unspecified; F17.210 Nicotine dependence, cigarettes, uncomplicated; Z98.890 Other specified postprocedural states; Z88.6 Allergy status to analgesic agent; Z91.013 Allergy to seafood; Z91.010 Allergy to peanuts; Z91.018 Allergy to other foods
CPT/HCPCS: 99283; 96372; J1885

== ENCOUNTER 2023-09-07 18:29 | Emergency (ER) | payer OTHER ==
[~2023-09-07] VITALS: Ht 162.6 cm; Wt 61.4 kg
[~2023-09-07 18:29] MED LIST changes: +HYDR-4723 PO; +POLY238P PO
[2023-09-07 18:34] VITALS: TEMP 97.9
[2023-09-07] MEDS ORDERED: METHOCARBAMOL 500 MG TABLET PO ONE (19:15)
[2023-09-07] MEDS ORDERED: KETOROLAC TROMETHAMINE 60 MG/2 ML VIAL IM ONE (19:15)
[2023-09-07] MEDS ORDERED: MORPHINE SULFATE 2 MG/ML SYRINGE IM ONE (19:30)
[2023-09-07] MEDS ORDERED: LIDOCAINE 5% TRANSDERMAL PATCH TD ONE (19:30)
[2023-09-07] MEDS ORDERED: PERCT PO (21:18)
[2023-09-07] MEDS ORDERED: METH-659 PO (21:18)
[2023-09-07 21:46] VITALS: BP 152/94; PULSE 94; RESP 16
== END 2023-09-07 21:47 | disposition home or self-care (01) ==
LOC: EMS 18:30
DX: S39.012A Strain of muscle, fascia and tendon of lower back, initial encounter (principal); M19.90 Unspecified osteoarthritis, unspecified site; I12.9 Hypertensive chronic kidney disease with stage 1 through stage 4 chronic kidney disease, or unspecified chronic kidney disease; N18.2 Chronic kidney disease, stage 2 (mild); F17.210 Nicotine dependence, cigarettes, uncomplicated; Z98.890 Other specified postprocedural states; Z88.6 Allergy status to analgesic agent; Z91.013 Allergy to seafood; Z91.010 Allergy to peanuts; Z91.018 Allergy to other foods; X58.XXXA Exposure to other specified factors, initial encounter; Y93.89 Activity, other specified; Y92.89 Other specified places as the place of occurrence of the external cause; Y99.8 Other external cause status
CPT/HCPCS: 99283; 96372; J2270

== ENCOUNTER 2023-11-08 14:34 | Emergency (ER) | payer OTHER ==
[~2023-11-08] VITALS: Ht 162.6 cm; Wt 63.6 kg
[~2023-11-08 14:34] MED LIST changes: -LIDO1ADH63 TP; -LIDO700A15 TP; +METH-659 PO; +PERCT PO; -POLY238P PO; -TRAM-559 PO
[2023-11-08 14:46] VITALS: TEMP 98
[2023-11-08] MEDS ORDERED: COLC0.6T73 PO (15:43)
[2023-11-08 15:51] VITALS: BP 168/108; PULSE 77; RESP 14
[2023-11-08] MEDS: COLCHICINE 0.6 MG TABLET PO ONE (15:51)
== END 2023-11-08 16:08 | disposition home or self-care (01) ==
LOC: EMS 14:34
DX: M10.9 Gout, unspecified (principal); I10 Essential (primary) hypertension; F17.210 Nicotine dependence, cigarettes, uncomplicated; Z87.440 Personal history of urinary (tract) infections; Z91.010 Allergy to peanuts; Z91.013 Allergy to seafood
CPT/HCPCS: 99283

== ENCOUNTER 2024-01-04 22:12 | Emergency (ER) | payer OTHER ==
[~2024-01-04] VITALS: Ht 162.6 cm; Wt 65.0 kg
[2024-01-04 22:18] VITALS: BP 155/118; PULSE 115; RESP 18; TEMP 98.5
[2024-01-04 23:16] LABS: BASOPHILS % (AUTO) 0.6 % (0.0-2.0); EOSINOPHILS % (AUTO) 1.2 % (1.0-6.0); HEMATOCRIT 44.8 % (41-53); HEMOGLOBIN 15.1 g/dL (13.5-17.5); LYMPHOCYTES # (AUTO) 2.1 K/uL (1.0-4.8); LYMPHOCYTES % (AUTO) 16.4 % (22.0-44.0); MEAN CORPUSCULAR HEMOGLOBIN 28.9 pg (26.0-34.0); MEAN CORPUSCULAR HGB CONC 33.7 G/dL (31.0-37.0); MEAN CORPUSCULAR VOLUME 86 fL (80-100); MONOCYTES # (AUTO) 1.1 K/uL (0.1-1.0); MONOCYTES % (AUTO) 8.1 % (2.0-9.0); NEUTROPHILS # (AUTO) 9.6 K/uL (1.8-7.7); NEUTROPHILS % (AUTO) 73.7 % (40.0-70.0); PLATELET COUNT (AUTO) 314 K/uL (150-450); RED BLOOD CELL COUNT(AUTO) 5.22 MIL/uL (4.50-5.90); RED CELL DISTRIBUTION WIDTH 14.5 % (11.5-14.5); WHITE BLOOD COUNT (AUTO) 13.1 K/uL (4.5-11.0)
[2024-01-04 23:25] LABS: CALCIUM, TOTAL 9.3 mg/dL (8.8-10.5); CREATININE 2.06 mg/dL (0.60-1.30); POTASSIUM 4.2 mmol/L (3.5-5.1)
[2024-01-04 23:31] LABS: ALBUMIN 2.8 g/dL (3.4-5.0); BILIRUBIN,TOTAL 0.4 mg/dL (0.1-1.0); TOTAL PROTEIN, SERUM 8.4 g/dL (6.4-8.2); URIC ACID 5.9 mg/dL (2.6-7.2)
[2024-01-05] MEDS ORDERED: PERCT PO (00:08)
[2024-01-05] MEDS: OxyCODONE HCL/ACETAMINOPHEN 5-325 MG TABLET PO ONE (00:22)
== END 2024-01-05 02:30 | disposition home or self-care (01) ==
LOC: EMS 22:15
DX: S83.91XA Sprain of unspecified site of right knee, initial encounter (principal); M25.461 Effusion, right knee; I10 Essential (primary) hypertension; M10.9 Gout, unspecified; N18.2 Chronic kidney disease, stage 2 (mild); F17.210 Nicotine dependence, cigarettes, uncomplicated; Z87.440 Personal history of urinary (tract) infections; Z91.010 Allergy to peanuts; Z91.013 Allergy to seafood; X58.XXXA Exposure to other specified factors, initial encounter; Y93.89 Activity, other specified; Y92.89 Other specified places as the place of occurrence of the external cause; Y99.8 Other external cause status
CPT/HCPCS: 29505; 80053; 84550; 85025; 99284

== ENCOUNTER 2024-01-10 21:53 | Emergency (ER) | payer OTHER ==
[~2024-01-10] VITALS: Ht 162.6 cm; Wt 59.1 kg
[~2024-01-10 21:53] MED LIST changes: +HYDR-4062 PO; -HYDR-4723 PO
[2024-01-10 22:09] VITALS: BP 131/83; PULSE 112; RESP 16; TEMP 98.5
[2024-01-10] MEDS ORDERED: METH4TAB3 PO (22:42)
[2024-01-10] MEDS ORDERED: ALLO-45 PO (22:42)
[2024-01-10] MEDS ORDERED: COLC0.6T73 PO (22:42)
[2024-01-10] MEDS: DEXAMETHASONE SOD PHOS 4 MG/ML 5 ML VIAL IM ONE (22:59)
[2024-01-10] MEDS: COLCHICINE 0.6 MG TABLET PO ONE (22:59)
[2024-01-10] MEDS: HYDROCODONE/ACETAMINOPHEN 5-325 MG TABLET PO ONE (23:00)
== END 2024-01-10 23:15 | disposition home or self-care (01) ==
LOC: EMS 21:59
DX: M10.9 Gout, unspecified (principal); F17.210 Nicotine dependence, cigarettes, uncomplicated; I12.9 Hypertensive chronic kidney disease with stage 1 through stage 4 chronic kidney disease, or unspecified chronic kidney disease; N18.2 Chronic kidney disease, stage 2 (mild); Z88.6 Allergy status to analgesic agent; Z91.013 Allergy to seafood; Z98.890 Other specified postprocedural states; Z91.010 Allergy to peanuts; Z91.018 Allergy to other foods
CPT/HCPCS: 99283; 96372; J1100

== ENCOUNTER → 2024-05-23 | Emergency (ER) | payer OTHER ==
[~2024-05-23] VITALS: Ht 165.1 cm; Wt 63.6 kg
[~2024-05-23] MED LIST changes: +ALLO300T2 PO; +COLC-3 PO; -COLC0.6T73 PO; +HYDR-4072 PO; +METH4TAB3 PO
[2024-05-23 08:07] VITALS: TEMP 99.3
[2024-05-23 08:50] LABS: APPEARANCE,URINE CLEAR (CLEAR); BILIRUBIN,URINE NEGATIVE (NEGATIVE); COLOR,URINE COLORLESS (YELLOW); GLUCOSE, URINE (UA) NEGATIVE (NEGATIVE); KETONES,URINE NEGATIVE (NEGATIVE); LEUKOCYTE ESTERASE ,URINE NEGATIVE (NEGATIVE); NITRATE,URINE NEGATIVE (NEGATIVE); OCCULT BLOOD,URINE NEGATIVE (NEGATIVE); PH,URINE 5.5 (5.0-8.0); PROTEIN,URINE 30-70 mg/dL (NEGATIVE); SPECIFIC GRAVITIY, URINE 1.011 (1.003-1.030); UROBILINOGEN,URINE <=1.0 mg/dL (<=1.0)
[2024-05-23 10:50] VITALS: BP 147/99; PULSE 72; RESP 18; O2SAT 98
== END | disposition still patient (30) ==
LOC: EMS 07:53
DX: G89.29 Other chronic pain (principal); M54.50 Low back pain, unspecified; F17.210 Nicotine dependence, cigarettes, uncomplicated; I10 Essential (primary) hypertension; Z91.010 Allergy to peanuts; Z91.013 Allergy to seafood; Z88.6 Allergy status to analgesic agent
CPT/HCPCS: 81003; 99283

== ENCOUNTER 2024-07-28 12:08 | Emergency (ER) | payer OTHER ==
[~2024-07-28] VITALS: Ht 162.6 cm; Wt 63.6 kg
[~2024-07-28 12:08] MED LIST changes: -ALLO-45 PO; -AMLO10TA55 PO; -CLON0.1T2 PO; -HYDR-4062 PO; -METH-659 PO; -METH4TAB3 PO; -PERCT PO; -PRED-729 PO
[2024-07-28 12:19] VITALS: BP 159/108; PULSE 94; RESP 18; TEMP 98.6; O2SAT 98
[2024-07-28 12:28] LABS: COVID AG,FIA SOURCE NASAL SWAB
[2024-07-28 12:53] LABS: SARS-COV2 (COVID) ANTIGEN,FIA Negative (Negative)
[2024-07-28 12:54] LABS: INFLUENZA TYPE A NEGATIVE FOR TYPE A (NEGATIVE); INFLUENZA TYPE B NEGATIVE FOR TYPE B (NEGATIVE)
[2024-07-28] MEDS: AMOX TR/POT CLAV 875 MG/125 MG TABLET PO ONE (13:11)
[2024-07-28] MEDS: ACETAMINOPHEN 325 MG TABLET PO ONE (13:11)
[2024-07-28] MEDS ORDERED: AMOX-457 PO (13:13)
[2024-07-28] MEDS ORDERED: ACET-2247 PO (13:13)
== END 2024-07-28 13:33 | disposition home or self-care (01) ==
LOC: EMS 12:13
DX: I12.9 Hypertensive chronic kidney disease with stage 1 through stage 4 chronic kidney disease, or unspecified chronic kidney disease (principal); N18.2 Chronic kidney disease, stage 2 (mild); M10.9 Gout, unspecified; F17.210 Nicotine dependence, cigarettes, uncomplicated; Z98.890 Other specified postprocedural states; Z88.6 Allergy status to analgesic agent; Z91.013 Allergy to seafood; Z91.010 Allergy to peanuts; Z20.822 Contact with and (suspected) exposure to COVID-19
CPT/HCPCS: 87430; 87804; 99283

== ENCOUNTER 2024-12-23 20:42 | Emergency (ER) | payer OTHER ==
[~2024-12-23] VITALS: Ht 157.5 cm; Wt 65.9 kg
[~2024-12-23 20:42] MED LIST changes: +ACET-2247 PO; +AMOX-457 PO; -CYCL-448 PO; -HYDR-4072 PO
[2024-12-23 20:47] VITALS: TEMP 98.2
[2024-12-23] MEDS: CloNIDine HCL 0.2 MG TABLET PO ONE (21:29)
[2024-12-23] MEDS: ACETAMINOPHEN 500 MG TABLET PO ONE (23:23)
[2024-12-23 23:24] LABS: APPEARANCE,URINE CLEAR (CLEAR); BILIRUBIN,URINE NEGATIVE (NEGATIVE); COLOR,URINE COLORLESS (YELLOW); GLUCOSE, URINE (UA) NEGATIVE (NEGATIVE); KETONES,URINE NEGATIVE (NEGATIVE); LEUKOCYTE ESTERASE ,URINE NEGATIVE (NEGATIVE); NITRATE,URINE NEGATIVE (NEGATIVE); OCCULT BLOOD,URINE TRACE (NEGATIVE); PH,URINE 5.5 (5.0-8.0); PROTEIN,URINE 30-70 mg/dL (NEGATIVE); SPECIFIC GRAVITIY, URINE 1.004 (1.003-1.030); UROBILINOGEN,URINE <=1.0 mg/dL (<=1.0)
[2024-12-23 23:36] LABS: BACTERIA,URINE Rare /HPF (None Seen); RBC,URINE 0-2 /HPF (0-2); WBC,URINE 0-2 /HPF (0-5)
[2024-12-23] MEDS ORDERED: OXYC5 PO (23:46)
[2024-12-23] MEDS ORDERED: COLC-3 PO (23:46)
[2024-12-24 00:30] VITALS: BP 144/100; PULSE 60; RESP 18; O2SAT 99
== END 2024-12-24 00:41 | disposition home or self-care (01) ==
LOC: EMS 20:42
DX: M10.9 Gout, unspecified (principal); I12.9 Hypertensive chronic kidney disease with stage 1 through stage 4 chronic kidney disease, or unspecified chronic kidney disease; N18.2 Chronic kidney disease, stage 2 (mild); F17.210 Nicotine dependence, cigarettes, uncomplicated; Z88.6 Allergy status to analgesic agent; Z87.440 Personal history of urinary (tract) infections; Z79.899 Other long term (current) drug therapy
CPT/HCPCS: 81001; 99283

== ENCOUNTER 2025-02-20 00:22 | Emergency (ER) | payer OTHER ==
[~2025-02-20] VITALS: Ht 162.6 cm; Wt 65.9 kg
[~2025-02-20 00:22] MED LIST changes: +OXYC5 PO
[2025-02-20 03:55] VITALS: TEMP 97.9
[2025-02-20] MEDS: TraMADol HCL 50 MG TABLET PO ONE (04:39)
[2025-02-20] MEDS: LIDOCAINE 5% TRANSDERMAL PATCH TD ONE (04:39)
[2025-02-20] MEDS ORDERED: CloNIDine HCL 0.1 MG TABLET PO ONE (06:00)
[2025-02-20] MEDS ORDERED: CYCL-448 PO (06:05)
[2025-02-20] MEDS ORDERED: LIDO-57 TP (06:05)
[2025-02-20] MEDS: CloNIDine HCL 0.2 MG TABLET PO ONE (06:15)
[2025-02-20 07:21] VITALS: BP 143/98; PULSE 60; RESP 16; O2SAT 98
== END 2025-02-20 07:29 | disposition home or self-care (01) ==
LOC: EMS 00:22
DX: M54.6 Pain in thoracic spine (principal); M19.90 Unspecified osteoarthritis, unspecified site; I12.9 Hypertensive chronic kidney disease with stage 1 through stage 4 chronic kidney disease, or unspecified chronic kidney disease; N18.2 Chronic kidney disease, stage 2 (mild); M10.9 Gout, unspecified; F17.210 Nicotine dependence, cigarettes, uncomplicated; Z88.6 Allergy status to analgesic agent; Z79.899 Other long term (current) drug therapy; Z91.010 Allergy to peanuts; Z91.013 Allergy to seafood
CPT/HCPCS: 99284; Z7502; Z7610

== ENCOUNTER 2025-03-14 20:58 | Emergency (ER) | payer OTHER ==
[~2025-03-14] VITALS: Ht 162.6 cm; Wt 65.9 kg
[~2025-03-14 20:58] MED LIST changes: +CYCL-448 PO; +LIDO-57 TP
[2025-03-14] MEDS: ACETAMINOPHEN 500 MG TABLET PO ONE (22:56)
[2025-03-14] MEDS: LIDOCAINE 5% TRANSDERMAL PATCH TD ONE (22:57)
[2025-03-14 23:15] VITALS: BP 177/115; PULSE 62; RESP 16; TEMP 98.1; O2SAT 99
== END 2025-03-15 00:14 | disposition home or self-care (01) ==
LOC: EMS 20:58
DX: S83.91XA Sprain of unspecified site of right knee, initial encounter (principal); I12.9 Hypertensive chronic kidney disease with stage 1 through stage 4 chronic kidney disease, or unspecified chronic kidney disease; N18.2 Chronic kidney disease, stage 2 (mild); M19.90 Unspecified osteoarthritis, unspecified site; Z88.6 Allergy status to analgesic agent; Z87.440 Personal history of urinary (tract) infections; Z79.899 Other long term (current) drug therapy; X50.9XXA Other and unspecified overexertion or strenuous movements or postures, initial encounter; Y93.01 Activity, walking, marching and hiking; Y92.89 Other specified places as the place of occurrence of the external cause; Y99.8 Other external cause status
CPT/HCPCS: 99283

== ENCOUNTER 2025-03-26 13:57 | Emergency (ER) | payer OTHER ==
[~2025-03-26] VITALS: Ht 167.6 cm; Wt 68.2 kg
[2025-03-26 14:04] VITALS: TEMP 98.7
[2025-03-26 14:48] LABS: PLATELET COUNT (AUTO) 186 K/uL (150-450); RED BLOOD CELL COUNT(AUTO) 5.68 MIL/uL (4.50-5.90); RED CELL DISTRIBUTION WIDTH 14.4 % (11.5-14.5); WHITE BLOOD COUNT (AUTO) 5.9 K/uL (4.5-11.0)
[2025-03-26 15:01] LABS: CALCIUM, TOTAL 8.7 mg/dL (8.8-10.5); CREATININE 1.78 mg/dL (0.60-1.30); GLOMERULAR FILTR. RATE CALC 43.0 mL/min (>60); GLUCOSE,RANDOM 91.0 mg/dL (70-110); SODIUM SERUM 143.0 mmol/L (136-145); UREA NITROGEN, BLOOD 15.0 mg/dL (7-18)
[2025-03-26 15:04] LABS: ASPARTATE AMINOTRANSFERASE 16.0 U/L (15-37); TOTAL PROTEIN, SERUM 6.7 g/dL (6.4-8.2)
[2025-03-26] MEDS: SODIUM CHLORIDE 0.9% 1,000 ML IV ONE (15:04)
[2025-03-26] MEDS ORDERED: IOHEXOL 350 MG/ML 100 ML VIAL ONE (15:41)
[2025-03-26] MEDS ORDERED: SODIUM CHLORIDE 0.9% 100 ML ONE (15:41)
[2025-03-26] MEDS ORDERED: 0.9% SODIUM CHLORIDE 10 ML SYRINGE IVP ONE (15:41)
[2025-03-26 16:30] LABS: APPEARANCE,URINE CLEAR (CLEAR); GLUCOSE, URINE (UA) NEGATIVE (NEGATIVE); LEUKOCYTE ESTERASE ,URINE NEGATIVE (NEGATIVE); NITRATE,URINE NEGATIVE (NEGATIVE); OCCULT BLOOD,URINE NEGATIVE (NEGATIVE); SPECIFIC GRAVITIY, URINE 1.008 (1.003-1.030)
[2025-03-26 18:20] VITALS: BP 151/93; PULSE 53; RESP 18; O2SAT 99
== END 2025-03-26 18:58 | disposition home or self-care (01) ==
LOC: EMS 14:02
DX: R10.31 Right lower quadrant pain (principal); I12.9 Hypertensive chronic kidney disease with stage 1 through stage 4 chronic kidney disease, or unspecified chronic kidney disease; N18.2 Chronic kidney disease, stage 2 (mild); M10.9 Gout, unspecified; Z98.890 Other specified postprocedural states; F17.210 Nicotine dependence, cigarettes, uncomplicated; Z88.6 Allergy status to analgesic agent; Z79.899 Other long term (current) drug therapy
CPT/HCPCS: 99285; 74177; 96360; 80048; 80076; 81003; 83690; 85025; 36415; Q9967; J7030; J7050

== ENCOUNTER 2025-04-13 07:53 | Emergency (ER) | payer OTHER ==
[~2025-04-13] VITALS: Ht 162.6 cm; Wt 65.9 kg
[2025-04-13 07:55] VITALS: BP 168/115; PULSE 88; RESP 18; TEMP 98.4; O2SAT 98
[2025-04-13] MEDS: LIDOCAINE 5% TRANSDERMAL PATCH TD ONE (09:09)
[2025-04-13] MEDS ORDERED: TRAM50TA5 PO (12:53)
== END 2025-04-13 13:26 | disposition home or self-care (01) ==
LOC: EMS 07:54
DX: S39.012A Strain of muscle, fascia and tendon of lower back, initial encounter (principal); I12.9 Hypertensive chronic kidney disease with stage 1 through stage 4 chronic kidney disease, or unspecified chronic kidney disease; N18.2 Chronic kidney disease, stage 2 (mild); M10.9 Gout, unspecified; M19.90 Unspecified osteoarthritis, unspecified site; F17.210 Nicotine dependence, cigarettes, uncomplicated; Z98.890 Other specified postprocedural states; Z88.6 Allergy status to analgesic agent; Z79.899 Other long term (current) drug therapy; Z88.8 Allergy status to other drugs, medicaments and biological substances; Z91.010 Allergy to peanuts; Z91.013 Allergy to seafood; Z91.018 Allergy to other foods; X58.XXXA Exposure to other specified factors, initial encounter; Y93.89 Activity, other specified; Y92.89 Other specified places as the place of occurrence of the external cause; Y99.8 Other external cause status
CPT/HCPCS: 99284; Z7502; Z7610

== ENCOUNTER 2025-07-17 21:12 | Emergency (ER) | payer OTHER ==
[~2025-07-17] VITALS: Ht 162.6 cm; Wt 65.9 kg
[~2025-07-17 21:12] MED LIST changes: -ACET-2247 PO; -AMOX-457 PO; -LIDO-57 TP; -OXYC5 PO; +TRAM50TA5 PO
[2025-07-17 21:29] VITALS: TEMP 98.2
[2025-07-18] MEDS: LIDOCAINE 5% TRANSDERMAL PATCH TD ONE (01:54)
[2025-07-18 04:06] VITALS: BP 148/76; PULSE 80; RESP 16; O2SAT 99
== END 2025-07-18 04:08 | disposition home or self-care (01) ==
LOC: EMS 21:19
DX: R07.89 Other chest pain (principal); M25.511 Pain in right shoulder; I12.9 Hypertensive chronic kidney disease with stage 1 through stage 4 chronic kidney disease, or unspecified chronic kidney disease; N18.2 Chronic kidney disease, stage 2 (mild); M10.9 Gout, unspecified; M19.90 Unspecified osteoarthritis, unspecified site; F17.210 Nicotine dependence, cigarettes, uncomplicated; Z98.890 Other specified postprocedural states; Z88.6 Allergy status to analgesic agent; Z91.010 Allergy to peanuts; Z91.013 Allergy to seafood; Z79.899 Other long term (current) drug therapy
CPT/HCPCS: 99283